=== PATIENT | female | born 1990 | race Native Hawaiian/Other Pacific Islander ===

== ENCOUNTER 2019-02-08 15:34 | Emergency (ER) | payer OTHER ==
[~2019-02-08] VITALS: Ht 154.9 cm; Wt 61.2 kg
[2019-02-08 18:15] VITALS: BP 108/67; TEMP 97.9
== END 2019-02-08 18:15 | disposition home or self-care (01) ==
LOC: ED 15:34
DX: M54.2 Cervicalgia (principal); M62.838 Other muscle spasm
CPT/HCPCS: 96372; 99283; J1885

== ENCOUNTER 2019-02-10 10:13 | Outpatient (CLI) | payer OTHER ==
[2019-02-10 10:47] LABS: PLATELET COUNT 199 K/uL (152-353)
[2019-02-10 11:17] LABS: POTASSIUM 4.4 mmol/L (3.6-5.2)
== END 2019-02-10 23:07 | disposition home or self-care (01) ==
LOC: LABW 10:13
PROVIDERS: Nurse Practitioner Family
DX: R53.83 Other fatigue (principal); E78.2 Mixed hyperlipidemia; K21.9 Gastro-esophageal reflux disease without esophagitis; E55.9 Vitamin D deficiency, unspecified
CPT/HCPCS: 36415; 80053; 80061; 82306; 82607; 82746; 84443; 85027; 86318

== ENCOUNTER 2021-11-25 15:33 | Outpatient (CLI) | payer OTHER ==
[2021-11-25 15:49] LABS: PLATELET COUNT 225 K/uL (152-353)
[2021-11-25 16:17] LABS: POTASSIUM 3.6 mmol/L (3.6-5.2)
== END 2021-11-25 19:26 | disposition home or self-care (01) ==
LOC: LABW 15:33
PROVIDERS: ATTEND Nurse Practitioner Family
DX: R53.83 Other fatigue (principal); E78.2 Mixed hyperlipidemia; E55.9 Vitamin D deficiency, unspecified
CPT/HCPCS: 36415; 80053; 80061; 82306; 82607; 82746; 84443; 85027

== ENCOUNTER 2022-10-13 15:50 | Outpatient (CLI) | payer OTHER | END 2022-10-13 21:57 | disposition home or self-care (01) | LOC: LABW 15:50 | PROVIDERS: ATTEND Nurse Practitioner Primary Care | DX: E03.8 Other specified hypothyroidism (principal); E55.9 Vitamin D deficiency, unspecified; E53.8 Deficiency of other specified B group vitamins | CPT/HCPCS: 36415; 82306; 82607; 84439; 84443; 84480 ==